=== PATIENT | female | born 1975 | race Caucasian/White ===

== ENCOUNTER 2018-04-24 10:01 | Outpatient (CLI) | payer OTHER, SELFPAY ==
[2018-04-24 11:27] LABS: HCT 33.8 % (36.0-46.0); HGB 10.3 g/dL (12.0-15.5); Mean Corp. HGB Concentration 30.5 g/dL (32.0-36.0); Mean Corpuscular Hemoglobin 24.2 pg (27.0-33.0); Mean Corpuscular Volume 79.3 fL (80-95); Platelet Count 285 x1000/uL (130-400); RBC 4.26 m/cumm (4.00-5.20); RBC Distribution Width 17.9 % (11.7-14.6)
[2018-04-24 12:27] LABS: ALT 23 U/L (12-78); AST 15 U/L (15-37); Albumin 4.1 g/dL (3.4-5.0); Alkaline Phosphatase 48 U/L (46-116); Anion Gap 7.9 mmol/L (3-11); BUN 9 mg/dL (7-18); Bilirubin, Total 0.4 mg/dL (0.2-1.0); CO2 24.1 mmol/L (21.0-32.0); CREATININE 0.81 mg/dL (0.55-1.02); Calcium 8.5 mg/dL (8.5-10.1); Chloride 103 mmol/L (98-107); Cholesterol 195 mg/dL (50-200); Glucose 90 mg/dL (70-100); HDL Cholesterol 72 mg/dL (40-60); LDL CHOLESTEROL 115 mg/dL (<100); Potassium 3.8 mmol/L (3.5-5.1); Sodium 135 mmol/L (136-145); TSH 2.22 uIU/mL (0.358-3.74); Total Protein 7.2 g/dL (6.4-8.2); Triglyceride 64 mg/dL (30-150)
== END 2018-04-24 10:02 ==
PROVIDERS: PCP Student in an Organized Health Care Education/Training Program; Visit Provider Student in an Organized Health Care Education/Training Program
DX: R53.83 Other fatigue (principal); R63.5 Abnormal weight gain; Z13.220 Encounter for screening for lipoid disorders
CPT/HCPCS: 36415; 80053; 80061; 83721; 85027; 84443

== ENCOUNTER 2018-06-17 08:24 | Outpatient (CLI) | payer OTHER, SELFPAY ==
[2018-06-17 08:46] LABS: HCT 39.9 % (36.0-46.0); HGB 12.8 g/dL (12.0-15.5)
== END 2018-06-17 08:44 ==
PROVIDERS: PCP Student in an Organized Health Care Education/Training Program; Visit Provider Student in an Organized Health Care Education/Training Program
DX: D64.9 Anemia, unspecified (principal)
CPT/HCPCS: 36415; 85014; 85018

== ENCOUNTER 2018-10-05 11:27 | Outpatient (REF) | payer OTHER, SELFPAY ==
--- NOTE | 2018-10-05 15:00 | ENDOMET_PTH ---
PATIENT: Micheline Calzada LOC: [facility] U#:[id number] AGE/SX: 43/F ROOM: RE10/05/[address]: Tania Davis MD : 1975 BED: DIS: 10/05/2018 SPEC #: [id number] RECD: 10/06/18 12:34 STATUS: MACKENZIE REQ #: [id number] MIAN: 10/05/18 15:[address]: Tania Davis DEPT: Surgical Specimen RECD BY: Fadia Duffy ENTERED: 10/06/18 12:34 SP TYPE: Endomet OTHR DR: Gayle Vaughan DO Tissues: 1 - ENDOMETRIUM BX/CURRETTE Procedures: GROSS AND MICRO LEVEL 4 Comments: [id number]
== END 2018-10-05 11:47 ==
LOC: LBN 11:27
PROVIDERS: PCP Student in an Organized Health Care Education/Training Program; Visit Provider Obstetrics & Gynecology
DX: N85.8 Other specified noninflammatory disorders of uterus (principal); N92.0 Excessive and frequent menstruation with regular cycle
CPT/HCPCS: 88305

== ENCOUNTER 2018-10-19 00:34 | Outpatient (CLI) | payer OTHER, SELFPAY ==
--- NOTE | 2018-10-19 13:02 | DI.US_ITS ---
SYMPTOM/DIAGNOSIS: MENORRHAGIA, N920 PELVIC ULTRASOUND: There are no prior comparison exams. Transabdominal and transvaginal studies were performed. The uterus is retroflexed. The uterus measures 9.2 x 5.5 x 5.6 cm. No discrete fibroids are identified. The endometrial stripe measures 13 mm in thickness. An IUD is seen within the endometrial cavity. The ovaries are normal in size and appearance. No free fluid or hydronephrosis. IMPRESSION: Mildly enlarged uterus without focal fibroid. An IUD is noted within the endometrium. The endometrial stripe appears mildly thickened.
== END 2018-10-19 00:54 ==
PROVIDERS: PCP Student in an Organized Health Care Education/Training Program; Visit Provider Obstetrics & Gynecology
DX: N92.0 Excessive and frequent menstruation with regular cycle (principal); D25.9 Leiomyoma of uterus, unspecified; N85.2 Hypertrophy of uterus; R93.89 Abnormal findings on diagnostic imaging of other specified body structures; Z97.5 Presence of (intrauterine) contraceptive device
CPT/HCPCS: 76830; 76856

== ENCOUNTER 2020-02-02 02:56 | Outpatient (CLI) | payer OTHER, SELFPAY ==
[2020-02-02 08:01] LABS: HCT 41.7 % (36.0-46.0); HGB 14.3 g/dL (12.0-15.5); Mean Corp. HGB Concentration 34.3 g/dL (32.0-36.0); Mean Corpuscular Hemoglobin 31.7 pg (27.0-33.0); Mean Corpuscular Volume 92.5 fL (80-95); Mean Platelet Volume 9.9 fL (8.0-11.0); Platelet Count 255 x1000/uL (130-400); RBC 4.51 m/cumm (4.00-5.20); RBC Distribution Width 12.7 % (11.7-14.6); White Blood Cell Count 5.76 k/cumm (4.4-10.8)
[2020-02-02 08:46] LABS: ALT 34 U/L (14-59); AST 17 U/L (15-37); Albumin 3.9 g/dL (3.4-5.0); Alkaline Phosphatase 53 U/L (46-116); Anion Gap 8.1 mmol/L (3-11); BUN 16 mg/dL (7-18); Bilirubin, Total 0.5 mg/dL (0.2-1.0); CO2 27.9 mmol/L (21.0-32.0); CREATININE 0.88 mg/dL (0.55-1.02); Calcium 8.7 mg/dL (8.5-10.1); Calculated LDL 134 mg/dL (<100); Chloride 103 mmol/L (98-107); Cholesterol 207 mg/dL (<200); Glucose 103 mg/dL (74-106); HDL Cholesterol 64 mg/dL (40-60); Potassium 3.7 mmol/L (3.5-5.1); Sodium 139 mmol/L (136-145); TSH (W/Ref FT4) 3.05 uIU/mL (0.36-3.74); Total Protein 6.8 g/dL (6.4-8.2); Triglyceride 45 mg/dL (<150)
[2020-02-03 04:45] LABS: Vitamin D 25 Total 20.3 ng/ml (30-100)
== END 2020-02-02 03:16 ==
PROVIDERS: PCP Student in an Organized Health Care Education/Training Program; Visit Provider Student in an Organized Health Care Education/Training Program
DX: R53.83 Other fatigue (principal); M25.50 Pain in unspecified joint; Z13.220 Encounter for screening for lipoid disorders; E46 Unspecified protein-calorie malnutrition; Z86.2 Personal history of diseases of the blood and blood-forming organs and certain disorders involving the immune mechanism; Z13.1 Encounter for screening for diabetes mellitus
CPT/HCPCS: 36415; 80053; 80061; 82306; 85027; 84443

== ENCOUNTER 2020-02-04 03:46 | Outpatient (CLI) | payer OTHER, SELFPAY ==
--- NOTE | 2020-02-04 06:30 | DI.MAMMO_ITS ---
EXAM: MAMMO SCREENING CLINICAL HISTORY: screening,baseline, z12.39 TECHNIQUE: Mammograms were interpreted according to the usual protocol including computer analysis w [employer] CAD system, tomosynthesis and C-view imaging. COMPARISON: FINDINGS: The breasts are heterogeneously dense. No dominant mass or clumped microcalcification is identified in either breast. Today's examination is a baseline examination. IMPRESSION: No specific evidence of malignancy at this time. Routine screening examinations are suggested at yea rly intervals in this age group according to the ACS ACR guidelines. BI-RADS Cat 1 - Negative: Breast Density - Category C - Heterogeneously dense:
== END 2020-02-04 04:06 ==
PROVIDERS: PCP Student in an Organized Health Care Education/Training Program; Visit Provider Student in an Organized Health Care Education/Training Program
DX: Z12.31 Encounter for screening mammogram for malignant neoplasm of breast (principal)
CPT/HCPCS: 77063; 77067

== ENCOUNTER 2020-10-10 03:38 | Outpatient (CLI) | payer OTHER, SELFPAY ==
[2020-10-10 08:02] LABS: HCT 38.7 % (36.0-46.0); MCH 31.3 pg (27.0-33.0); MCHC 33.6 % (32.0-36.0); MCV 93.3 fL (80-95); MPV 9.6 fL (8.0-11.0); Platelet Count 272 10^3/uL (130-400); RBC 4.15 10^6/uL (3.93-5.22); RDW 12.8 % (11.7-14.6); RDW-SD 43.9 fL; WBC 5.75 10^3/uL (4.4-10.8)
[2020-10-10 08:51] LABS: FREE T4 1.03 ng/dL (0.76-1.46)
[2020-10-10 08:56] LABS: Anion Gap 8.5 mmol/L (3-11); BUN 18 mg/dL (7-18); CO2 26.5 mmol/L (21.0-32.0); CREATININE 0.85 mg/dL (0.55-1.02); Calcium 8.5 mg/dL (8.5-10.1); Calculated LDL 107 mg/dL (<100); Chloride 106 mmol/L (98-107); Cholesterol 186 mg/dL (<200); Ferritin 8 ng/mL (8-252); Glucose 89 mg/dL (74-106); HDL Cholesterol 71 mg/dL (40-60); Potassium 3.8 mmol/L (3.5-5.1); Sodium 141 mmol/L (136-145); TSH (W/Ref FT4) 2.56 uIU/mL (0.36-3.74); Triglyceride 43 mg/dL (<150)
[2020-10-12 04:54] LABS: Vitamin D 25 Total 25.2 ng/ml (30-100)
== END 2020-10-10 03:58 ==
PROVIDERS: PCP Student in an Organized Health Care Education/Training Program; Visit Provider Student in an Organized Health Care Education/Training Program
DX: R63.4 Abnormal weight loss (principal); N92.0 Excessive and frequent menstruation with regular cycle; R53.83 Other fatigue; G25.81 Restless legs syndrome; E55.9 Vitamin D deficiency, unspecified; Z13.220 Encounter for screening for lipoid disorders
CPT/HCPCS: 36415; 80048; 80061; 82306; 85027; 82728; 84439; 84443

== ENCOUNTER 2021-12-17 03:35 | Outpatient (CLI) | payer BC, SELFPAY ==
[2021-12-17 09:05] LABS: HGB 10.6 g/dL (11.2-15.7); MCH 27.9 pg (27.0-33.0); MCHC 31.2 % (32.0-36.0); MCV 89.5 fL (80-95); MPV 10.2 fL (8.0-11.0); Platelet Count 248 10^3/uL (130-400); RDW 14.7 % (11.7-14.6); RDW-SD 48.9 fL; WBC 4.87 10^3/uL (4.4-10.8)
[2021-12-17 10:12] LABS: ALT 24 U/L (14-59); AST 14 U/L (15-37); Albumin 3.7 g/dL (3.4-5.0); Alkaline Phosphatase 42 U/L (46-116); Anion Gap 6.3 mmol/L (3-11); BUN 16 mg/dL (7-18); Bilirubin, Total 0.2 mg/dL (0.2-1.0); CO2 26.7 mmol/L (21.0-32.0); CREATININE 0.9 mg/dL (0.55-1.02); Calcium 8.1 mg/dL (8.5-10.1); Calculated LDL 108 mg/dL (<100); Chloride 107 mmol/L (98-107); Cholesterol 174 mg/dL (<200); Glucose 95 mg/dL (74-106); HDL Cholesterol 57 mg/dL (40-60); Sodium 140 mmol/L (136-145); Total Protein 6.4 g/dL (6.4-8.2); Triglyceride 48 mg/dL (<150)
[2021-12-17 10:26] LABS: Vitamin D 25 Total 21.8 ng/mL (30-100)
[2021-12-18 09:32] LABS: HBs Antibody, Qual Positive (See Note); HBs Antibody, Quant 578.5 mIU/mL (See Note); Hepatitis B Core Antibody Negative (Negative); Hepatitis B surface Ag Negative (Negative); Hepatitis C Ab w Rflx HCV PCR Negative (Negative)
[2021-12-18 09:49] LABS: HIV-1/2 Ag & Ab Screen Negative (Negative)
== END 2021-12-17 03:36 | disposition home or self-care (01) ==
LOC: LBO 03:36
PROVIDERS: PCP Student in an Organized Health Care Education/Training Program; Referring Provider Student in an Organized Health Care Education/Training Program; Visit Provider Student in an Organized Health Care Education/Training Program
DX: E03.9 Hypothyroidism, unspecified (principal); D64.9 Anemia, unspecified; N92.0 Excessive and frequent menstruation with regular cycle; E86.0 Dehydration; Z13.220 Encounter for screening for lipoid disorders; Z11.4 Encounter for screening for human immunodeficiency virus [HIV]; Z11.59 Encounter for screening for other viral diseases; Z86.39 Personal history of other endocrine, nutritional and metabolic disease
CPT/HCPCS: 36415; 80053; 80061; 82306; 85027; 86704; 86706; 86803; 87340; 87389; 84443

== ENCOUNTER → 2022-06-03 01:56 | Outpatient (CLI) | payer BC, SELFPAY ==
--- NOTE | 2022-06-03 12:40 | DI.MAMMO_ITS ---
Exam(s) MAMMO SCREENING EXAM: MAMMO SCREENING CLINICAL HISTORY: screening,Z12.39. TECHNIQUE: Bilateral full field digital CC and MLO mammographic images were obtained with 3D tomosyn thesis and utilizing computer aided detection (CAD). COMPARISON: Prior mammograms January 2020 was reviewed. FINDINGS: Fibroglandular tissue pattern is again noted be moderately dense, this somewhat decreasing the sensit ivity of the mammogram for finding hidden underlying lesions. There are no new spiculated masses nor malignant appearing microcalcification groups. There is no significant architectural distortion nor skin thickening-retraction. IMPRESSION: No radiographic evidence of malignancy. BI-RADS Category 1 - Negative Breast Density - Category C - Heterogeneously dense Breast density Category C or D implies that the patient has dense breast tissue. Dense breast tissue can make it harder to find cancer on a mammogram. Dense breast tissue is also associated with an incr eased risk of breast cancer. This information about the result of the mammogram report was provided to the patient to raise their awareness. Use this report when you speak with the patient about their risks for breast cancer, which includes their family history. At that time, you may recommend additional screening tests (Ultrasoun d or MRI) as these tests may add significant information. A negative radiographic report should not delay biopsy if a dominant or clinically suspicious mass is present. Up to ten percent of cancers are not identified on mammography. A negative report may reinforce clinical impression. Adenosis and dense breasts may obscure an underlying neoplasm. False positive reports average 6 to 10%. Patient will receive a letter notifying them of these results.
== END ==
PROVIDERS: PCP Student in an Organized Health Care Education/Training Program; Visit Provider Student in an Organized Health Care Education/Training Program
DX: Z12.31 Encounter for screening mammogram for malignant neoplasm of breast (principal)
CPT/HCPCS: 77063; 77067

== ENCOUNTER 2022-11-13 02:45 | Outpatient (CLI) | payer BC, SELFPAY ==
[2022-11-13 12:27] LABS: HCT 35.2 % (36.0-46.0); HGB 10.8 g/dL (11.2-15.7); MCH 25.4 pg (27.0-33.0); MCHC 30.7 % (32.0-36.0); MCV 83 fL (80-95); MPV 10.9 fL (8.0-11.0); Platelet Count 281 10^3/uL (130-400); RBC 4.26 10^6/uL (3.93-5.22); RDW 17.6 % (11.7-14.6); RDW-SD 52.8 fL; WBC 4.58 10^3/uL (4.4-10.8)
[2022-11-13 12:46] LABS: Iron 31 ug/dL (50-170); Total Iron Binding Capacity 397 ug/dL (250-450); Transferrin Sat 8 % (15-50)
[2022-11-13 12:54] LABS: ALT 24 U/L (14-59); AST 13 U/L (15-37); Albumin 4.3 g/dL (3.4-5.0); Alkaline Phosphatase 42 U/L (46-116); Anion Gap 12.9 mmol/L (3-11); BUN 25 mg/dL (7-18); Bilirubin, Total 0.4 mg/dL (0.2-1.0); CO2 21.1 mmol/L (21.0-32.0); Calcium 9.2 mg/dL (8.5-10.1); Calculated LDL 147 mg/dL (<100); Chloride 106 mmol/L (98-107); Cholesterol 237 mg/dL (<200); Estimated GFR 69.93 (mL/min/1.73m2); Ferritin 4 ng/mL (8-252); Glucose 84 mg/dL (74-106); HDL Cholesterol 80 mg/dL (40-60); Potassium 3.8 mmol/L (3.5-5.1); Sodium 140 mmol/L (136-145); TSH (W/Ref FT4) 2.36 uIU/mL (0.36-3.74); Total Protein 7.5 g/dL (6.4-8.2); Triglyceride 50 mg/dL (<150)
[2022-11-13 13:06] LABS: Vitamin D 25 Total 20.1 ng/mL (30-100)
== END 2022-11-13 02:46 | disposition home or self-care (01) ==
PROVIDERS: PCP Student in an Organized Health Care Education/Training Program; Visit Provider Student in an Organized Health Care Education/Training Program
DX: D64.9 Anemia, unspecified (principal); N92.0 Excessive and frequent menstruation with regular cycle; E03.9 Hypothyroidism, unspecified; R63.5 Abnormal weight gain; R00.2 Palpitations; E63.8 Other specified nutritional deficiencies; E46 Unspecified protein-calorie malnutrition; Z86.39 Personal history of other endocrine, nutritional and metabolic disease; E55.9 Vitamin D deficiency, unspecified
CPT/HCPCS: 36415; 80053; 80061; 82306; 85027; 82728; 83540; 83550; 84443

== ENCOUNTER 2023-03-18 18:09 | Outpatient (REF) | payer OTHER, SELFPAY | END 2023-03-18 18:10 | disposition home or self-care (01) | LOC: LBN 18:09 | PROVIDERS: PCP Student in an Organized Health Care Education/Training Program; Visit Provider Physician Assistant | DX: N39.0 Urinary tract infection, site not specified (principal) | CPT/HCPCS: 87077; 87086; 87186 ==

== ENCOUNTER 2023-04-18 01:45 | Outpatient (CLI) | payer OTHER, SELFPAY ==
[2023-04-18 14:40] LABS: HCT 37.1 % (36.0-46.0); HGB 12.6 g/dL (11.2-15.7); MCV 91 fL (80-95); MPV 9.6 fL (8.0-11.0); Platelet Count 264 10^3/uL (130-400); RBC 4.06 10^6/uL (3.93-5.22); RDW 13.2 % (11.7-14.6); RDW-SD 43.8 fL; WBC 5.51 10^3/uL (4.4-10.8)
[2023-04-18 15:48] LABS: Anion Gap 11.1 mmol/L (3-11); BUN 13 mg/dL (7-18); CO2 23.9 mmol/L (21.0-32.0); CREATININE 0.9 mg/dL (0.55-1.02); Calcium 8.8 mg/dL (8.5-10.1); Chloride 105 mmol/L (98-107); Estimated GFR 78.86 (mL/min/1.73m2); Ferritin 8 ng/mL (8-252); Glucose 94 mg/dL (74-106); Potassium 3.3 mmol/L (3.5-5.1); Sodium 140 mmol/L (136-145); TSH (W/Ref FT4) 1.61 uIU/mL (0.36-3.74)
[2023-04-18 16:01] LABS: Iron 39 ug/dL (50-170); Total Iron Binding Capacity 297 ug/dL (250-450); Transferrin Sat 13 % (15-50)
== END 2023-04-18 01:46 | disposition home or self-care (01) ==
LOC: LBO 01:45
PROVIDERS: PCP Student in an Organized Health Care Education/Training Program; Referring Provider Student in an Organized Health Care Education/Training Program; Visit Provider Student in an Organized Health Care Education/Training Program
DX: D64.9 Anemia, unspecified (principal); E03.9 Hypothyroidism, unspecified; R00.2 Palpitations; R53.83 Other fatigue; R79.89 Other specified abnormal findings of blood chemistry; J45.909 Unspecified asthma, uncomplicated; G47.26 Circadian rhythm sleep disorder, shift work type
CPT/HCPCS: 36415; 80048; 85027; 82728; 83540; 83550; 84443

== ENCOUNTER 2023-11-07 02:38 | Outpatient (CLI) | payer OTHER, SELFPAY ==
[2023-11-07 16:04] LABS: Abs Immature Grans 0.04 10^3/uL (0.0-0.06); Absolute Basophil Count 0.01 10^3/uL (0.0-0.2); Absolute Lymphocyte Count 0.85 10^3/uL (1.2-3.4); Absolute Monocyte Count 0.18 10^3/uL (0.1-0.8); Absolute Neutrophil Count 7.36 10^3/uL (1.2-6.7); Basophils % 0.1; HCT 38.6 % (36.0-46.0); HGB 12.3 g/dL (11.2-15.7); Immature Grans % 0.5; Lymphocytes % 10.1; MCH 28.6 pg (27.0-33.0); MCHC 31.9 % (32.0-36.0); MCV 90 fL (80-95); MPV 9.5 fL (8.0-11.0); Monocytes % 2.1; Neutrophils % 87.2; Platelet Count 292 10^3/uL (130-400); RDW 14.6 % (11.7-14.6); RDW-SD 47.5 fL; WBC 8.44 10^3/uL (4.4-10.8)
[2023-11-07 17:09] LABS: ALT 22 U/L (14-59); AST 7 U/L (15-37); Alkaline Phosphatase 33 U/L (46-116); Anion Gap 12.5 mmol/L (3-11); BUN 15 mg/dL (7-18); Bilirubin, Total 0.4 mg/dL (0.2-1.0); CO2 24.5 mmol/L (21.0-32.0); Calcium 9.8 mg/dL (8.5-10.1); Chloride 108 mmol/L (98-107); Estimated GFR 69.49 (mL/min/1.73m2); Ferritin 6 ng/mL (8-252); Glucose 103 mg/dL (74-106); Potassium 3.7 mmol/L (3.5-5.1); Sodium 145 mmol/L (136-145); TSH (W/Ref FT4) 0.78 uIU/mL (0.36-3.74); Total Protein 7.3 g/dL (6.4-8.2)
[2023-11-07 17:28] LABS: Iron 25 ug/dL (50-170); Total Iron Binding Capacity 377 ug/dL (250-450); Transferrin Sat 7 % (15-50)
== END 2023-11-07 02:39 | disposition home or self-care (01) ==
PROVIDERS: PCP Student in an Organized Health Care Education/Training Program; Visit Provider Student in an Organized Health Care Education/Training Program
DX: N93.8 Other specified abnormal uterine and vaginal bleeding (principal); D64.9 Anemia, unspecified; Z86.2 Personal history of diseases of the blood and blood-forming organs and certain disorders involving the immune mechanism; R00.2 Palpitations; E03.9 Hypothyroidism, unspecified; D89.89 Other specified disorders involving the immune mechanism, not elsewhere classified; Z91.89 Other specified personal risk factors, not elsewhere classified; Z63.79 Other stressful life events affecting family and household
CPT/HCPCS: 36415; 80053; 82728; 83540; 83550; 84443; 85025

== ENCOUNTER 2023-11-11 14:53 | Outpatient (CLI) | payer OTHER, SELFPAY | END 2023-11-11 14:54 | disposition home or self-care (01) | LOC: CARDOPNVT 14:53 | PROVIDERS: PCP Student in an Organized Health Care Education/Training Program; Visit Provider Student in an Organized Health Care Education/Training Program | DX: R00.2 Palpitations (principal); Z86.2 Personal history of diseases of the blood and blood-forming organs and certain disorders involving the immune mechanism; Z86.79 Personal history of other diseases of the circulatory system | CPT/HCPCS: 93246 ==

== ENCOUNTER 2023-12-01 08:29 | Outpatient (CLI) | payer OTHER, SELFPAY ==
--- NOTE | 2023-12-01 09:07 | W.CARDEVENT ---
Date of service: 12/01/23 Time of Service: 09:07 Cardiac Event Recorder Referring Provider:: Gayle Vaughan Indications:: Palpitations Cardiac Event Note: This is a cardiac event monitor. Patient was monitored for 9 days and 1 hour Rhythm throughout was sinus with an average heart rate of 79. Minimum was 52, maximum 150 There were a total of 5 isolated premature ventricular contractions. There were very rare atrial premature beats. There were very rare atrial pairs and triplets There was no atrial fibrillation, no high-grade AV block, no pauses greater than 3 seconds. Symptoms were reported which corresponded to sinus tachycardia and sinus rhythm
== END 2023-12-01 08:30 | disposition home or self-care (01) ==
LOC: CARDOPNVT 08:29
PROVIDERS: PCP Student in an Organized Health Care Education/Training Program; Visit Provider Internal Medicine Cardiovascular Disease
DX: R00.2 Palpitations (principal); I49.3 Ventricular premature depolarization

== ENCOUNTER 2024-02-02 12:02 | Outpatient (REF) | payer MEDICAID, SELFPAY ==
--- NOTE | 2024-02-02 11:20 | PAPFT_PTH ---
PATIENT: Micheline Calzada LOC: [facility] U#:[id number] AGE/SX: 49/F ROOM: RE02/02/[address]: Marianela Toth DO : 1975 BED: DIS: 02/02/2024 SPEC #: [id number] RECD: 02/02/24 13:11 STATUS: MACKENZIE REQ #: [id number] MIAN: 02/02/24 11:[address]: Marianela Toth DEPT: [facility] Cytology RECD BY: Fdaia Duffy ENTERED: 02/02/24 13:12 SP TYPE: PAPFT OTHR DR: Gayle Vaughan DO Tissues: 1 - CX/ENDOCX FOR PAP SMEARS Procedures: PAP THIN PREP/UVM Screening HPV DNA PROBE Comments: [id number]
== END 2024-02-02 12:03 | disposition home or self-care (01) ==
LOC: LBN 12:02
PROVIDERS: PCP Student in an Organized Health Care Education/Training Program; Visit Provider Obstetrics & Gynecology
DX: Z12.4 Encounter for screening for malignant neoplasm of cervix (principal)
CPT/HCPCS: 88142; 87624

== ENCOUNTER → 2024-02-05 04:04 | Outpatient (CLI) | payer MEDICAID, SELFPAY ==
--- NOTE | 2024-02-05 15:00 | DI.MAMMO_ITS ---
Exam(s) MAMMO SCREENING EXAM: MAMMO SCREENING CLINICAL HISTORY: screening. TECHNIQUE: Bilateral full field digital CC and MLO mammographic images were obtained with 3D tomosyn thesis and utilizing computer aided detection (CAD). COMPARISON: Prior mammograms were reviewed. FINDINGS: The fibroglandular tissue pattern is again noted be moderately dense, this somewhat Decreasing the sensitivity of the mammogram for finding hidden underlying lesions There are no new spiculated masses nor malignant appearing microcalcification groups. There is no significant architectural distortion nor skin thickening-retraction. IMPRESSION: No radiographic evidence of malignancy. BI-RADS Category 1 - Negative Breast Density - Category C - Heterogeneously dense Breast density Category C or D implies that the patient has dense breast tissue. Dense breast tissue can make it harder to find cancer on a mammogram. Dense breast tissue is also associated with an incr eased risk of breast cancer. This information about the result of the mammogram report was provided to the patient to raise their awareness. Use this report when you speak with the patient about their risks for breast cancer, which includes their family history. At that time, you may recommend additional screening tests (Ultrasoun d or MRI) as these tests may add significant information. A negative radiographic report should not delay biopsy if a dominant or clinically suspicious mass is present. Up to ten percent of cancers are not identified on mammography. A negative report may reinforce clinical impression. Adenosis and dense breasts may obscure an underlying neoplasm. False positive reports average 6 to 10%. Patient will receive a letter notifying them of these results.
== END ==
PROVIDERS: PCP Student in an Organized Health Care Education/Training Program; Visit Provider Obstetrics & Gynecology
DX: Z12.31 Encounter for screening mammogram for malignant neoplasm of breast (principal); R92.30 Dense breasts, unspecified
CPT/HCPCS: 77063; 77067

== ENCOUNTER 2024-02-05 15:17 | Outpatient (CLI) | payer MEDICAID, SELFPAY ==
[2024-02-05 16:19] LABS: Iron 59 ug/dL (50-170)
[2024-02-05 17:06] LABS: Calculated LDL 98 mg/dL (<100); Cholesterol 187 mg/dL (<200); HDL Cholesterol 77 mg/dL (40-60); Triglyceride 61 mg/dL (<150)
== END 2024-02-05 15:18 | disposition home or self-care (01) ==
LOC: LBO 15:17
PROVIDERS: PCP Student in an Organized Health Care Education/Training Program; Visit Provider Student in an Organized Health Care Education/Training Program
DX: N93.8 Other specified abnormal uterine and vaginal bleeding (principal); D64.9 Anemia, unspecified; Z86.2 Personal history of diseases of the blood and blood-forming organs and certain disorders involving the immune mechanism; Z13.220 Encounter for screening for lipoid disorders
CPT/HCPCS: 36415; 80061; 83540

== ENCOUNTER 2024-10-02 19:09 | Emergency (ER) | payer MEDICAID, SELFPAY ==
[2024-10-02 19:12] VITALS: BP 153/80; PULSE 104; RESP 20; O2SAT 98
--- NOTE | 2024-10-02 19:30 | DI.CT_ITS ---
Exam(s) CT ABDOMEN PELVIS W EXAM: CT ABDOMEN PELVIS W CLINICAL HISTORY: R. flank and RUQ pain TECHNIQUE: Imaging Protocol: Axial computed tomography images with coronal and sagittal reformatted images were created and reviewed. CONTRAST MATERIAL: Intravenous: Omnipaque 350 Contrast volume:75 mL Oral: No COMPARISON: US US PELVIS TRANSVAGINAL from 04/23/2023 FINDINGS: ABDOMEN: Lung Bases: No acute abnormality. Liver: Normal density. No measurable mass. Portal, Superior Mesenteric, and Splenic Veins: Unremarkable. Gallbladder and Biliary Tract: No radiodense calculus or dilation. Pancreas: Normal density, no abnormal calcifications or inflammatory process. Spleen: Normal. Adrenals: There is a small nodule seen on the left adrenal gland likely reflecting an adenoma. No fo llow-up is recommended. The right adrenal gland is unremarkable. Kidneys: Normal size, contour and axis. No radiodense stones or obstructive uropathy. No masses seen. Abdominal Aorta: Abdominal portion non-dilated. Bowel: No obstruction or bowel wall thickening. There is a moderate amount of stool throughout the co raz suggesting constipation. There is no evidence of an appendicitis. Peritoneal Cavity: No ascites, collection or mesenteric inflammatory response. No free air. Lymph Nodes: Within normal limits. Bones: Within normal limits for the patient's age. Soft Tissues: Unremarkable. PELVIS: Bladder: Symmetric distention, no gross wall thickening. Reproductive Organs: Unremarkable as visualized. Lymph Nodes: Within normal limits. Bones: Within normal limits for the patient's age. IMPRESSION: 1. No acute abdominal or pelvic process. 2. No evidence of cholelithiasis or biliary ductal dilatation, nephrolithiasis or hydronephrosis or a ppendicitis. 3. The reproductive organs appear grossly unremarkable. RADIATION DOSE DELIVERED: 486.5mGy.cm Total DLP DATA REPOSITORY: All CT scans at this facility are submitted to the National Radiology Data Registry (NRDR) Dose Index Registry (DIR) with the [employer] (ACR). RADIATION OPTIMIZATION: All CT scans at this facility use at least one of these dose optimization te chniques: automated exposure control; mA and/or kV adjustment per patient size (includes targeted exa ms where dose is matched to clinical indication); or iterative reconstruction.
--- NOTE | 2024-10-02 19:37 | ED.GENADUL_ITS ---
Discharge Plan Disposition Patient Disposition: Home Condition: Stable Discharge Details Clinical Impression: Acute right flank pain, Right upper quadrant abdominal pain Primary Care Provider: Gayle Vaughan ED Provider: aMry Kunz Home Meds and New Rx's Prescriptions: New Morphine Ir, 4 Tabs/Btl [Msir, 4 Tabs/Btl] 15 mg PO DISPENSE Qty: 0 0RF No Action acetazolamide 125 mg tablet 125 mg PO HS Qty: 90 3RF Rx Instructions: Re-starting, with Neuro ref placed. albuterol sulfate [ProAir HFA] 90 mcg/actuation HFA aerosol inhaler 2 puff inhalation Q6H PRN (Reason: shortness of breath or wheezing) Qty: 8.5 2RF Rx Instructions: Substitutions or generic OK; dispense as best filled per insurance... progesterone micronized [Prometrium] 100 mg capsule 100 mg PO QAM 90 Days Qty: 90 3RF cholecalciferol (vitamin D3) 250 mcg (10,000 unit) capsule 250 mcg PO QWEEK Qty: 10 1RF Rx Instructions: Re-start weekly, x10 weeks Stress Formula with Iron 1 EACH tablet 1 ea PO DAILY Qty: 100 0RF levothyroxine 25 mcg tablet 25 mcg PO DAILY Qty: 90 3RF ibuprofen 800 MG tablet 800 mg PO TID Rx Instructions: 04/22/18 prn use only acetaminophen 500 MG tablet 1,000 mg PO TID Rx Instructions: 04/22/18 prn use only Discharge Instructions Instructions: Flank Pain ED Additional Instructions: You were seen in the emergency department today for evaluation of right flank and upper abdominal pain. In our department you have a full physical examination performed, had laboratory studies that were reassuring and had an ultrasound and CT scan that did not show any abnormalities that might explain your symptoms. Unfortunately, it is sometimes not possible to determine the exact cause of symptoms in the emergency department setting, and as we discussed we may be dealing with musculoskeletal abnormalities. I recommend that you continue to use Tylenol and ibuprofen for management of the majority of your pain, and I did provide you with a small bottle of morphine to be used for severe breakthrough pain. Please use caution when driving as this medication can cause drowsiness. You can return to the emergency department if you develop fever or chills, sudden change or worsening of your pain, nausea or vomiting that prevents you from eating and drinking, and any other symptoms that cause you concern. Please follow-up with your primary care provider in the next few days to discuss this visit and any symptoms that change, worsen, or persist. Thank you for allowing us to be part of your care. HPI General Mode of arrival: ambulatory . Date/Time Provider Initiated Documentation: 10/02/24 19:14 . Limitations to Documentation: no limitations . Information obtained by: patient and old records reviewed . HPI Narrative: HPI: This is a 49-year-old female patient with a past medical history significant for hypothyroidism, anemia, presenting for evaluation of right flank and right upper quadrant abdominal pain. The patient reports that her symptoms have been present on and off since , she noticed that initially she was experiencing flank pain but seems to have tenderness in her upper quadrant of her abdomen as well. She reports that she has been trying to manage her symptoms at home with Tylenol and ibuprofen. She has been able to drink and maintain her hydration, did have a sudden worsening of her pain went out to dinner tonight. States that she had some broth and chicken. She did pass a stool today, did notice some nausea without vomiting, denies dysuria or hematuria. Exam: Gen: Awake and alert, appears uncomfortable and is having difficulty finding a comfortable position, standing and moving about the room HEENT: Non-icteric sclera Neck: Supple Lungs: No apparent respiratory distress, normal respiratory effort. Lung sounds clear and equal bilaterally CV: Appears well perfused, heart with mildly tachycardic rate but regular rhythm, strong distal pulses. No murmurs auscultated Abdomen: Non-distended, soft, tender to palpation in the right upper quadrant with a positive Castillo sign. Otherwise no rigidity, rebound, guarding MSK: Moves 4 extremities without apparent limitation in ROM. The patient has right CVA tenderness, with no overlying skin changes Skin: Visualized skin without rashes, cyanosis. Neuro: Normal Gait, no obvious focal deficits or facial asymmetry. Endorses some radicular pain into her hip but not into her leg. Speaks in full, clear sentences. Psych: Appropriate for situation. MDM: This is a 49-year-old female patient presenting for evaluation of right flank and right upper quadrant abdominal pain. My differential includes but is not limited to cholecystitis, choledocholithiasis, hepatitis, pancreatitis, nephrolithiasis, urinary tract infection/pyelonephritis. Certainly considered pulmonary abnormalities including lower lobe pneumonia, no focal lung findings to significantly increase my concern for reactive airway disease exacerbation, pulmonary edema. Considered metabolic and electrolyte derangements, kidney injury, dehydration, liver disease. I performed a bedside ultrasound as noted below, which did not show any obvious signs of cholecystitis, hydronephrosis. We will obtain laboratory studies to include CBC, CMP, magnesium, lipase, troponin, and urinalysis with tsrpz-ff-znol urine screen. I did shared decision-making conversation with the patient and initially she would like to trial Tylenol and Zofran for symptomatic management of pain and nausea. ED Course: I independently interpreted the laboratory studies, which show no significant leukocytosis, anemia, or thrombocytopenia. The chemistry panel is without evidence of electrolyte abnormality, kidney dysfunction, or liver injury. Lipase is low, troponin was negative. Urinalysis with hematuria and squamous contamination, patient does endorse just finishing her menstrual cycle which likely accounts for this finding. No significant concerning findings for infection. I independently interpreted the patient's CT abdomen pelvis, which does not show any abnormalities to account for her symptoms, and are specifically without evidence of cholecystitis, obstructive uropathy, or other intra-abdominal abnormalities other than mild to moderate constipation. The patient continued to have discomfort and was provided with a dose of oral morphine to good effect. She mentions a history of prior musculoskeletal/spinal disc disease, and this could certainly be contributing to her symptoms. I sent her with a take-home course of oral morphine and recommended outpatient follow- up with her primary care provider for reassessment of any ongoing symptoms. At this time, the patient has had a full medical evaluation and is safe for discharge to home. They are hemodynamically stable, ambulatory, and tolerating PO. They are understanding of the follow-up plan and return precautions. They left our facility without incident. Mary Kunz MD Related Data Home Medications ?Medication ?Instructions ?Recorded ?Confirmed acetaminophen 500 mg tablet 1,000 mg PO TID 09/11/17 10/02/24 ibuprofen 800 mg tablet 800 mg PO TID 09/11/17 10/02/24 vit B xsovpnm-V-BQ-iron fum-vit E 1 ea PO DAILY #100 tab-caps 05/06/18 10/02/24 500 mg-400 mcg-18 mg iron tablet (Stress Formula with Iron) albuterol sulfate 90 mcg/actuation 2 puff inhalation Q6H PRN 12/07/21 10/02/24 aerosol inhaler (ProAir HFA) shortness of breath or wheezing #8.5 grams acetazolamide 125 mg tablet 125 mg PO HS #90 tab-caps 01/14/23 10/02/24 cholecalciferol (vitamin D3) 250 250 mcg PO QWEEK #10 caps 10/21/23 10/02/24 mcg (10,000 unit) capsule levothyroxine 25 mcg tablet 25 mcg PO DAILY #90 tabs 11/01/23 10/02/24 progesterone micronized 100 mg 100 mg PO QAM 3 months #90 caps 02/02/24 10/02/24 capsule (Prometrium) MORPHine IR, 4 tabs/btl [MSIR, 4 15 mg PO DISPENSE ##0 10/02/24 tabs/btl] Previous Rx's ?Medication ?Instructions ?Recorded vit B ztfqtqm-Y-HS-iron fum-vit E 1 ea PO DAILY #100 tab-caps 05/06/18 500 mg-400 mcg-18 mg iron tablet (Stress Formula with Iron) albuterol sulfate 90 mcg/actuation 2 puff inhalation Q6H PRN 12/07/21 aerosol inhaler (ProAir HFA) shortness of breath or wheezing #8.5 grams acetazolamide 125 mg tablet 125 mg PO HS #90 tab-caps 01/14/23 cholecalciferol (vitamin D3) 250 250 mcg PO QWEEK #10 caps 10/21/23 mcg (10,000 unit) capsule levothyroxine 25 mcg tablet 25 mcg PO DAILY #90 tabs 11/01/23 progesterone micronized 100 mg 100 mg PO QAM 3 months #90 caps 02/02/24 capsule (Prometrium) MORPHine IR, 4 tabs/btl [MSIR, 4 15 mg PO DISPENSE ##0 10/02/24 tabs/btl] Allergies Allergy/AdvReac Type Severity Reaction Status Date / Time Sulfa (Sulfonamide Allergy Swelling/Ed Verified 10/02/24 19:14 Antibiotics) heather General Stated Complaint: Abd Prob RATNA: 3 Course Vital Signs Vital signs: Vital Signs Pulse 104 H 10/02/24 19:12 Respiratory Rate 20 10/02/24 19:12 Blood Pressure 153/80 H 10/02/24 19:12 Pulse Oximetry 98 10/02/24 19:12 Pulse 104 H 10/02/24 19:12 Respiratory Rate 20 10/02/24 19:12 Blood Pressure 153/80 H 10/02/24 19:12 Blood Pressure Position Sitting 10/02/24 19:12 Pulse Oximetry 98 10/02/24 19:12 Oxygen Delivery Method Room Air 10/02/24 19:12 Oxygen Flow Rate 0 10/02/24 19:12 Pain Level 7 10/02/24 19:12 Medical Decision Making Quality:SDOH Health Related Social Needs: No Data to Display PFSH All Active Problems (Updated 10/02/24 @ 21:15 by Mary Kunz MD) Right upper quadrant abdominal pain (Acute) Acute right flank pain (Acute) Hypothyroid (Chronic) High normal TSH, clinical hypothyroidism, 03/2020. Hx of urticaria (Acute) x1-2 episodes, w/o pruritis alf systemic steroid user (Acute) 60mg, serious eczema .. @ 30mg .. > 4 weeks and difficult to reduce up to date (wkg with derm)(requesting rheum) Autoimmune disorder (Acute) 07/05/24 [facility] Rheum note: no systemic autoimmune disorder. no inflamm. arthropathy. per IK.HE Hx of iron deficiency anemia (Acute) Dyshidrotic eczema (Acute) Cracked skin (Acute) Dermatitis (Acute) DUB (dysfunctional uterine bleeding) (Acute) UTI symptoms (Acute) Sleep-wake cycle disorder (Acute) At risk for diabetes mellitus (Acute) Shifting sleep-work schedule, affecting sleep (Acute) Stressful work schedule (Acute) Anemia (Chronic) Stressful life event affecting family (Acute) COVID-19 (Acute) Sending Paxlovid. TMJ (dislocation of temporomandibular joint) (Acute) 03/16/22 Seen at [facility] ED Marital stress (Acute) Parenting .. work schedules.. household management/responsibilities.. 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 RAD (reactive airway disease) (Acute) Noticing chest tightness and SOB and wheeze with running, cold morning .. Trial Alb [ ] History of vitamin D deficiency (Acute) Weight gain (Acute) Medical History Menorrhagia with regular cycle PROMETRIUM HELPING.. Acute on chronic issue .. seems to be cause of anemia, fatigue as she feels better today -- after month of diet changes and Fe. Recent H/H improved. Sept mense was especially heavy. Trial bc pills for reg/decrease bleedg. Herniated lumbar intervertebral disc (04/09/18) Went to [facility] Med ? 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) hospitalized at [facility] [place]- 1 month duration Surgical History section (08/10/07) Family History Brother Crohn disease Daughter Cancer Son Cancer Social History Smoking/Tobacco Use Status: Never Smoking risk assessment performed?: Yes Alcohol Intake: current Alcohol Intake frequency: holidays/special occasions only Alcohol type: beer Details: 2-3 beers/month Drug use: Never Substance use type: does not use Adopted: No Caregiver/Support person: No Foster care: No Household members: spouse and children Housing: house Number of Children: 4 number of grandchildren: 0 Communication Needs: None Education Level: college Details: Bachelor's - [employer] Do you need help understanding health information?: Never 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 [employer] Pets and animals: Yes Pets and animals: cat(s) and dog(s) Sexually active: Yes Do you think of yourself as: straight/heterosexual Current gender identity: female What is your relationship status?: How often do you talk on the phone with friends or family?: twice per week Do you belong to any clubs or organized social groups?: no Panel score (0-1 are the most socially isolated patients): 1 What type of physical activity do you participate in: walking, regular exercise and running Duration: 45-60 minutes/day Frequency: 5-6 times per week Leeanne/Sabianist: Pentecostalism Special leeanne needs: No Seatbelt use: always Helmet use: Yes Drive intox or ride w/intox [employer] truck driver: No Do you feel safe at home: Yes Do you feel safe in your relationship?: Yes POCUS Exam (ED) Limited Gallbladder Exam DATE OF EXAM: 10/02/24 TIME OF EXAM: 19:37 PROVIDER THAT PERFORMED THE STUDY: Mary Kunz IS THIS A REPEAT EXAM DURING THIS ENCOUNTER: No REASON FOR VISIT: Abdominal pain, Flank pain and Positive Castillo's sign VISUALIZED STRUCTURES: Gallbladder, Gallbladder wall and Liver PERTINENT FINDINGS/IMPRESSION: No apparent abnormalities; No Pericholecystic fluid and No thickening of the gallbladder wall Exam complete Limited Retroperitoneal(Renal)Exam DATE OF EXAM: 10/02/24 TIME OF EXAM: 19:38 PROVIDER THAT PERFORMED THE STUDY: Mary Kunz IS THIS A REPEAT EXAM DURING THIS ENCOUNTER: No REASON FOR EXAM: Flank pain/right side VISUALIZED STRUCTURES: Left kidney and Right kidney PERTINENT FINDINGS/IMPRESSION: No apparent abnormalities Exam complete
[2024-10-02] MEDS: Acetaminophen 500 MG TAB 1000 MG PO (19:44)
[2024-10-02] MEDS: Ondansetron 4 MG/2 ML VIAL IVP (19:44)
[2024-10-02 19:52] LABS: Abs Immature Grans 0.01 10^3/uL (0.0-0.06); Absolute Basophil Count 0.03 10^3/uL (0.0-0.2); Absolute Eosinophil Count 0.07 10^3/uL (0.0-0.7); Absolute Lymphocyte Count 1.83 10^3/uL (1.2-3.4); Absolute Monocyte Count 0.49 10^3/uL (0.1-0.8); Absolute Neutrophil Count 3.66 10^3/uL (1.2-6.7); Basophils % 0.5 %; Eosinophils % 1.1 %; HCT 35.6 % (36.0-46.0); HGB 11.2 g/dL (11.2-15.7); Immature Grans % 0.2 %; MCH 26.7 pg (27.0-33.0); MCHC 31.5 % (32.0-36.0); MCV 85 fL (80-95); MPV 9.4 fL (8.0-11.0); Neutrophils % 60.2 %; Platelet Count 285 10^3/uL (130-400); RDW 15.9 % (11.7-14.6); RDW-SD 49.5 fL; WBC 6.09 10^3/uL (4.4-10.8)
[2024-10-02] MEDS: Omnipaque 350 MG/ML 100 ML BTL IJ (19:59)
[2024-10-02] MEDS: Normal Saline - Diluent 50 ML VIAL IJ (20:01)
[2024-10-02 20:21] LABS: ALT 23 U/L (14-59); AST 15 U/L (15-37); Albumin 3.9 g/dL (3.4-5.0); Alkaline Phosphatase 44 U/L (46-116); Anion Gap 8.5 mmol/L (3-11); BUN 13 mg/dL (7-18); Bilirubin, Total 0.36 mg/dL (0.2-1.0); CO2 30.5 mmol/L (21.0-32.0); Chloride 104 mmol/L (98-107); Estimated GFR 69.06 (mL/min/1.73m2); Glucose 96 mg/dL (74-106); Lipase 54 U/L (<78); Potassium 3.6 mmol/L (3.5-5.1); Sodium 143 mmol/L (136-145); Total Protein 7.3 g/dL (6.4-8.2)
[2024-10-02 20:22] LABS: Troponin I < 4 ng/L (<or=51)
[2024-10-02 20:26] LABS: Bilirubin Negative (Negative); Blood Moderate (Negative); Clarity Clear (Clear); Glucose Negative (Negative); Ketones Negative (Negative); Leukocyte Esterase Negative (Negative); Nitrite Negative (Negative); Urobilinogen 0.2 mg/dL (Up to 0.2)
[2024-10-02 20:36] LABS: RBC 0-2 HPF (0-2); WBC 0-2 HPF (0-5)
[2024-10-02 20:37] LABS: Bacteria Rare HPF (Negative); C & S Indicated? No/Sq. Contamination; Casts Negative LPF (Negative); Crystals Negative HPF (Negative); Epithelial Cells Many HPF (Negative); Mucus Negative (Negative)
[2024-10-02] MEDS: MORPHine IR 15 MG TAB PO (20:38)
--- NOTE | 2024-10-02 21:17 | DI.VRAD_ITS ---
PROCEDURE INFORMATION: Exam: CT Abdomen And Pelvis With Contrast Exam date and time: 10/02/2024 7:57 PM Age: 49 years old Clinical indication: Abdominal pain; Right upper quadrant (ruq); Patient HX: R flank and ruq pain TECHNIQUE: Imaging protocol: Computed tomography of the abdomen and pelvis with contrast. COMPARISON: US PELVIS TRANSVAGINAL 04/23/2023 12:35 PM FINDINGS: Lungs: Lung bases clear. Liver: Normal appearing liver. Gallbladder and biliary ducts: Normal appearing gallbladder, partially decompressed. No calcified gallstones. No biliary dilatation. Pancreas: Normal appearing pancreas. Spleen: Normal appearing spleen. Adrenal glands: Normal appearing adrenal glands. Kidneys and ureters: Normal appearing kidneys. No hydronephrosis. Stomach and bowel: Stomach moderately distended with ingested material. No small bowel dilatation to suggest obstruction. Normal-appearing fecal material in the colon. No evidence of diverticulitis or colitis. Appendix: Normal appendix. Intraperitoneal space: No gross ascites or free air. Vasculature: Normal caliber abdominal aorta. Lymph nodes: No pathologically enlarged mesenteric, retroperitoneal, or pelvic sidewall lymph nodes. Urinary bladder: Normal appearing urinary bladder. Reproductive: Normal-sized uterus and left ovary. Right ovary largely obscured and not well evaluated but not grossly enlarged. Bones/joints: No acute fracture seen among the bones of the abdomen or pelvis. Soft tissues: Tiny fat-containing ventral hernia at the umbilicus, doubtful clinical significance. IMPRESSION: 1. Normal-appearing gallbladder, partially decompressed. No calcified gallstones or biliary dilatation. 2. No acute bowel pathology demonstrated. 3. Trace fluid in the cul-de-sac of Kiet, nonspecific. Normal-appearing left ovary. Right ovary largely obscured and not well evaluated but not grossly enlarged. Dictated and Authenticated by: Kade Dawson MD. Ordering:AZALIA Mariee MD
[2024-10-02] MEDS: MORPHine IR 15 MG TAB, 4 TABS/BTL PO (21:22)
== END 2024-10-02 21:23 | disposition home or self-care (01) ==
PROVIDERS: Emergency Provider Emergency Medicine; PCP Student in an Organized Health Care Education/Training Program
DX: R10.11 Right upper quadrant pain (principal); R11.0 Nausea; D64.9 Anemia, unspecified; E03.9 Hypothyroidism, unspecified
CPT/HCPCS: 76705; 76775; 80053; 83690; 74177; 81003; 81015; 83735; 84484; 85025; J2405; J3490

== ENCOUNTER 2025-04-27 11:21 | Outpatient (REF) | payer MEDICAID, SELFPAY ==
--- NOTE | 2025-04-27 11:07 | PAPFT_PTH ---
PATIENT: Micheline Calzada LOC: [facility] U#:[id number] AGE/SX: 50/F ROOM: RE04/27/[address]: Marianela Toth DO : 1975 BED: DIS: 04/27/2025 SPEC #: [id number] RECD: 04/27/25 12:55 STATUS: MACKENZIE REMara #: [id number] MIAN: 04/27/25 11:[address]: Marianela Toth DEPT: [facility] Cytology RECD BY: Fadia Duffy ENTERED: 04/27/25 12:55 SP TYPE: PAPFT DEX DR: Sydney Connolly APRN Tissues: 1 - CX/ENDOCX FOR PAP SMEARS Procedures: PAP THIN PREP/[facility] Screening HPV DNA PROBE Comments: [id number] (HPV 16 & 18/45)
== END 2025-04-27 11:22 | disposition home or self-care (01) ==
LOC: LBN 11:21
PROVIDERS: PCP Nurse Practitioner Adult Health; Visit Provider Obstetrics & Gynecology
DX: Z12.4 Encounter for screening for malignant neoplasm of cervix (principal)
CPT/HCPCS: 88142; 87624